=== PATIENT | male | born 1965 | race Caucasian/White ===

== ENCOUNTER → 2021-05-20 12:12 | Outpatient (CLI) | payer BC, SELFPAY ==
[2021-05-20 12:51] VITALS: PULSE 102; PULSE 107; PULSE 109; PULSE 112; PULSE 119; PULSE 82; PULSE 85; O2SAT 94; O2SAT 95; O2SAT 96
--- NOTE | 2021-05-22 08:29 | PCM.PSN.6M ---
PSN 6 Minute Walk Test 6 Minute Walk Test 6 Minute Walk Test: 6 Minute Walk Test PSN:6-Minute Walk Test Start: 05/20/21 12:50 Freq: Status: Active Protocol: [id number].[id number] Document 05/20/21 12:51 ASAEL (Rec: 05/20/21 12:53 TERESOESDRASCOREY [id number]) 6 Minute Walk Test Date Performed 05/20/21 Time Performed 12:30 Height 5 ft 9 in Weight: 142.882 kg Weight in Pounds 315.[address]: Tera Castillo Assistive device used: None Pre-test Oxygen Delivery Method Room Air Pulse Ox (%) 95 Pulse Rate (60-100 beats/min) 82 Dyspnea Gary Scale (0-10) 0 Exertion Gary Scale (6-20) 6 1st minute Oxygen Delivery Method Room Air Pulse Ox (%) 96 Pulse Rate (60-100 beats/min) 102 H 2nd minute Oxygen Delivery Method Room Air Pulse Ox (%) 94 Pulse Rate (60-100 beats/min) 107 H 3rd minute Oxygen Delivery Method Room Air Pulse Ox (%) 94 Pulse Rate (60-100 beats/min) 107 H 4th minute Oxygen Delivery Method Room Air Pulse Ox (%) 95 Pulse Rate (60-100 beats/min) 112 H 5th minute Oxygen Delivery Method Room Air Pulse Ox (%) 95 Pulse Rate (60-100 beats/min) 109 H 6th minute Oxygen Delivery Method Room Air Pulse Ox (%) 95 Pulse Rate (60-100 beats/min) 119 H Dyspnea Gary Scale (0-10) 2 Exertion Gary Scale (6-20) 12 Post-test Oxygen Delivery Method Room Air Pulse Ox (%) 96 Pulse Rate (60-100 beats/min) 85 Full Laps Walked 22 Partial Lap, Number of Tiles Walked 15 Total Distance Walked (ft) 1313 Interpretation Interpretation: The patient ambulated 1313 feet over the course of 6 minutes beginning on room air without assistive devices. Pretesting oxygen saturation was noted to be 95% on room air. With ambulation, the angie oxygen saturation was 94%. There was no significant exertional oxygen desaturation. Recommendations Recommendations: There is no indication for the use of supplemental oxygen at this time.
== END ==
DX: J84.9 Interstitial pulmonary disease, unspecified (principal); J96.11 Chronic respiratory failure with hypoxia; Z99.81 Dependence on supplemental oxygen
CPT/HCPCS: 94618

== ENCOUNTER → 2021-05-22 07:48 | Outpatient (CLI) | payer BC, SELFPAY ==
--- NOTE | 2021-05-23 11:06 | PFT ---
INTRODUCTION: The patient is a 55-year-old male that presents for pulmonary function studies secondary to a diagnosis of lung disease. Respiratory therapy reported good patient effort. Bronchodilators were used during testing. INTERPRETATION: Forced expiration spirometry demonstrates no evidence of a large airways obstructive ventilatory defect. There was no significant response to aerosolized bronchodilators. Spirograms are of good quality and plateau normally. Body plethysmography was performed and reveals lung volumes to be within normal limits. Diffusing capacity by single breath CO is also within normal limits. IMPRESSION: Grossly normal pulmonary function studies.
== END ==
DX: J84.9 Interstitial pulmonary disease, unspecified (principal); J96.11 Chronic respiratory failure with hypoxia; Z99.81 Dependence on supplemental oxygen
CPT/HCPCS: 94060; 94726; 94729